=== PATIENT | male | born 1975 | race Hispanic/Latino ===

== ENCOUNTER → 2023-04-08 | Outpatient (CLI) | payer OTHER ==
[2023-04-08 16:23] LABS: BASOPHILS # (AUTO) 0.03 K/uL (0.00-0.20); BASOPHILS % (AUTO) 0.3 % (0.0-5.0); EOSINOPHILS # (AUTO) 0.29 K/uL (0.00-0.70); EOSINOPHILS % (AUTO) 2.8 % (0.0-8.0); HEMATOCRIT 40.1 % (42-54); IMMATURE GRANULOCYTE ABSOLUTE 0.03 K/uL (0-1); LYMPHOCYTES # (AUTO) 4.6 K/uL (1.0-4.8); LYMPHOCYTES % (AUTO) 45.2 % (21.0-51.0); MEAN CORPUSCULAR HEMOGLOBIN 26.2 pg (27.0-33.0); MEAN CORPUSCULAR HGB CONC 32.7 g/dL (32.0-36.0); MEAN CORPUSCULAR VOLUME 80.2 fL (79-99); MONOCYTES # (AUTO) 0.6 K/uL (0.1-1.0); NEUTROPHILS # (AUTO) 4.7 K/uL (1.8-7.7); NEUTROPHILS % (AUTO) 45.4 % (40.0-77.0); PLATELET COUNT (AUTO) 368 K/uL (130-400); RED CELL DISTRIBUTION WIDTH 13.8 % (11.0-15.5); WHITE BLOOD COUNT (AUTO) 10.2 K/uL (4.8-10.8)
[2023-04-08 16:35] LABS: URIC ACID 5.7 mg/dL (2.6-7.2)
[2023-04-08 16:44] LABS: CRP QUANTITATIVE < 2.00 mg/L (0.00-9.0)
[2023-04-08 18:18] LABS: ERYTHROCYTE SEDIMENTATION RATE 17 MM/HR (0-15)
== END | disposition home or self-care (01) ==
LOC: LAB 15:28
PROVIDERS: ATTEND Student in an Organized Health Care Education/Training Program
DX: S82.141P Displaced bicondylar fracture of right tibia, subsequent encounter for closed fracture with malunion (principal); X58.XXXD Exposure to other specified factors, subsequent encounter
CPT/HCPCS: 36415; 84550; 85025; 85651; 86140; 86431

== ENCOUNTER → 2023-04-22 | Outpatient (CLI) | payer OTHER | END | disposition home or self-care (01) | LOC: LAB 16:42 | PROVIDERS: ATTEND Student in an Organized Health Care Education/Training Program | DX: S82.141P Displaced bicondylar fracture of right tibia, subsequent encounter for closed fracture with malunion (principal); X58.XXXD Exposure to other specified factors, subsequent encounter | CPT/HCPCS: 87071; 87076; 87205; 89060 ==